=== PATIENT | female | born 1945 | race Two or more races ===

== ENCOUNTER → 2019-03-21 | Outpatient (CLI) | payer OTHER ==
[~2019-03-21] MED LIST: FLAGYL500MG PO; INTESTINEX680 MG PO; LEVAQUIN750 MG PO; OMEPRAZOLE20 MG PO; SYNTHROID50 MCG
== END | disposition home or self-care (01) ==
LOC: RAD 15:44
DX: M17.0 Bilateral primary osteoarthritis of knee (principal)

== ENCOUNTER 2020-11-26 14:01 | Outpatient (CLI) | payer OTHER | END 2020-11-26 14:07 | disposition home or self-care (01) | LOC: RAD 14:01 | PROVIDERS: ATTEND Physical Medicine & Rehabilitation Sports Medicine | DX: M17.0 Bilateral primary osteoarthritis of knee (principal) ==

== ENCOUNTER 2025-01-03 08:17 | Outpatient (CLI) | payer OTHER | END 2025-01-03 08:24 | disposition home or self-care (01) | LOC: SONOGRAMA 08:17 | PROVIDERS: ATTEND Internal Medicine Gastroenterology | DX: R10.9 Unspecified abdominal pain (principal) ==